=== PATIENT | male | born 1995 | race Caucasian/White ===

== ENCOUNTER 2024-12-15 00:54 | Emergency (ER) | payer OTHER ==
[~2024-12-15] VITALS: Ht 182.9 cm; Wt 106.6 kg
[2024-12-15] MEDS ORDERED: dexaMETHasone SOD PHOSPHATE 1 ML ONE (01:50)
[2024-12-15] MEDS ORDERED: CARISOPRODOL 350 MG TABLET ONE (01:50)
[2024-12-15] MEDS ORDERED: MORPHINE SULFATE INJ 4 MG/ML DISP.SYRIN ONE (01:51)
[2024-12-15] MEDS: dexaMETHasone SOD PHOSPHATE 4 MG/ML VIAL IM ONE (02:02)
[2024-12-15] MEDS: CARISOPRODOL 350 MG TABLET PO ONE (02:03)
[2024-12-15] MEDS: MORPHINE SULFATE INJ 2 MG/ML DISP.SYRIN IM ONE (02:03)
[2024-12-15] MEDS ORDERED: IBUP-1957 PO (03:08)
[2024-12-15] MEDS ORDERED: PRED50TA PO (03:08)
[2024-12-15] MEDS ORDERED: HYDR-3972 PO (03:08)
[2024-12-15] MEDS ORDERED: CARI350T PO (03:08)
[2024-12-15 03:20] VITALS: BP 123/87; TEMP 98.2; O2SAT 97
== END 2024-12-15 03:21 ==
LOC: ER 01:19
DX: M62.838 Other muscle spasm (principal); M54.2 Cervicalgia; M25.512 Pain in left shoulder; M25.511 Pain in right shoulder; Z65.3 Problems related to other legal circumstances; Z79.1 Long term (current) use of non-steroidal anti-inflammatories (NSAID); Z79.52 Long term (current) use of systemic steroids; Y04.0XXA Assault by unarmed brawl or fight, initial encounter; Y93.89 Activity, other specified; Y92.89 Other specified places as the place of occurrence of the external cause; Y99.8 Other external cause status
CPT/HCPCS: 99285; 72125; 96372; J1100; J2270